=== PATIENT | female | born 1950 | race Hispanic/Latino ===

== ENCOUNTER 2016-11-29 08:42 | Day surgery (SDC) | payer MEDICARE, MEDICAID, OTHER ==
[2016-11-21 11:38] VITALS: BMI 18.9
[2016-11-29] MEDS ORDERED: Midazolam 2 MG/2 ML VIAL ONE (10:13)
[2016-11-29] MEDS ORDERED: Propofol 10 mg/ml Inj (20 ML) ONE (10:13)
[2016-11-29] MEDS ORDERED: Lactated Ringer's 1,000 ML IV SCH (10:50)
[2016-11-29 11:50] VITALS: BP 109/63; PULSE 71; RESP 16; TEMP 98; O2SAT 99
== END 2016-11-29 12:16 | disposition home or self-care (01) ==
LOC: ENDO 08:42
PROVIDERS: ATTEND Specialist
DX: Z12.11 Encounter for screening for malignant neoplasm of colon (principal); D12.4 Benign neoplasm of descending colon; K63.5 Polyp of colon; K57.30 Diverticulosis of large intestine without perforation or abscess without bleeding; K55.20 Angiodysplasia of colon without hemorrhage; K64.8 Other hemorrhoids
CPT/HCPCS: 45380; 45385; 88305; J2250; J2704; J7040; J7120